=== PATIENT | male | born 1965 | race Caucasian/White ===

== ENCOUNTER 2019-06-01 12:40 | Emergency (ER) | payer SELFPAY ==
[2019-06-01 12:43] VITALS: BP 121/79; PULSE 81; RESP 16; TEMP 36.6; O2SAT 97; BMI 22.9
== END 2019-06-01 16:01 | disposition left against medical advice (07) ==
LOC: ER 14:21
PROVIDERS: Emergency Provider Emergency Medicine
DX: R07.9 Chest pain, unspecified (principal); R53.83 Other fatigue; R06.02 Shortness of breath; F17.200 Nicotine dependence, unspecified, uncomplicated; Z53.21 Procedure and treatment not carried out due to patient leaving prior to being seen by health care provider
CPT/HCPCS: 99281